=== PATIENT | male | born 1940 | race Caucasian/White ===

== ENCOUNTER → 2019-05-11 12:27 | Outpatient (CLI) | payer MEDICARE, OTHER, SELFPAY ==
--- NOTE | ~2019-05-11 | XR_ITS ---
EXAMINATION: XR chest 2V DATE: 05/11/2019 12:47 INDICATION: Cough. TECHNIQUE: Frontal and lateral views of the chest were obtained. COMPARISON: Chest 2 views 08/08/2017 FINDINGS: The chest demonstrates clear lungs without pneumonia, pleural effusion, or pneumothorax. Th e heart size is normal. There is a left chest wall pacer with leads in the right atrium and right misti tricle. IMPRESSION: 1. No acute cardiopulmonary disease. Reviewed, dictated and finalized at location A. D SALES SPECIALIST
== END ==
PROVIDERS: Visit Provider Nurse Practitioner
DX: R05 Cough (principal)
CPT/HCPCS: 71046

== ENCOUNTER 2021-03-02 13:03 | Outpatient (CLI) | payer MEDICARE, OTHER, SELFPAY ==
--- NOTE | ~2021-03-02 | XR_ITS ---
EXAMINATION: XR lumbar spine 2-3V DATE: 03/02/2021 13:22 INDICATION: Low back pain. TECHNIQUE: 3 views of lumbar spine were obtained. COMPARISON: CT abdomen and pelvis 05/19/15 FINDINGS: There is 6 mm levocurvature of lumbar spine. S1 is age is initial segment. There is 4 mm an terolisthesis of L5 on S1. There is a compression fracture of L1 with 1/5 loss of height. There is mi ldly decreased disc height at L4-L5 and severely decreased disc height at L5-S1. There is multilevel facet joint osteoarthritis, severe bilaterally at L5-S1. IMPRESSION: 1. L1 compression fracture, likely acute or subacute. 2. Severe lower lumbar spondylosis. Reviewed, dictated and finalized at location A. UNICATIONS OPERATOR
== END 2021-03-02 13:04 | disposition home or self-care (01) ==
LOC: ANHIMG 13:06
PROVIDERS: PCP Internal Medicine; Visit Provider Nurse Practitioner
DX: M54.50 Low back pain, unspecified (principal); M48.56XA Collapsed vertebra, not elsewhere classified, lumbar region, initial encounter for fracture; M47.816 Spondylosis without myelopathy or radiculopathy, lumbar region
CPT/HCPCS: 72100

== ENCOUNTER 2021-03-16 07:57 | Outpatient (CLI) | payer MEDICARE, OTHER, SELFPAY ==
--- NOTE | ~2021-03-16 | CT_ITS ---
EXAMINATION: CT lumbar spine wo [facility] EXAM DATE: 03/16/2021 08:22 INDICATION: Fall, low back pain, L1 compression fracture. TECHNIQUE: Spiral CT of the lumbar spine was performed without contrast. Axial, coronal and sagittal images lumbar spine were reviewed. The dose-length product (DLP) for this examination was 1115.06 m Gy-cm. The exposure was tailored according to patient size (auto mA exposure control), and iterativ e reconstruction (ASIR) was used as additional dose reduction technique. There is no prior study for comparison. FINDINGS: There is mild to moderate subacute L1 compression fracture, with sclerosis which is evidenc e of healing response. Otherwise lumbar vertebral body heights relatively well-maintained. There is 2 -3 mm anterolisthesis L5 on S1. The vertebral bodies are otherwise aligned. Moderate L5-S1 disc disea se, mild at the other lumbar levels. Sacrum appears intact. There is small sliding gastroesophageal h iatal hernia. Level by level evaluation: T12-L1: Disc does not extend beyond the endplate margin. Facet arthropathy: None. Neural foraminal stenosis: No stenosis. Central canal stenosis: No stenosis. L1-L2: Disc does not extend beyond the endplate margin. Facet arthropathy: None. Neural foraminal stenosis: No stenosis. Central canal stenosis: No stenosis. L2-L3: There is a mild diffuse disc bulge. Facet arthropathy: Mild. Neural foraminal stenosis: Mild right. Central canal stenosis: Mild. L3-L4: There is a moderate diffuse disc bulge. Facet arthropathy: Mild to moderate. Neural foraminal stenosis: Mild bilateral. Central canal stenosis: Mild to moderate. L4-L5: There is a moderate diffuse disc bulge. Facet arthropathy: Moderate. Neural foraminal stenosis: Mild to moderate bilateral, left greater than right. Central canal stenosis: Moderate. L5-S1: There is a moderate diffuse disc bulge. Facet arthropathy: Moderate. Neural foraminal stenosis: Moderate left, mild to moderate right. Central canal stenosis: Mild. IMPRESSION: 1. L1 subacute mild to moderate compression fracture. 2. Up to moderate lumbar spondylosis. Reviewed, dictated and finalized at location B. FINISHER
== END 2021-03-16 07:58 | disposition home or self-care (01) ==
LOC: ANHIMG 08:00
PROVIDERS: PCP Internal Medicine; Visit Provider Nurse Practitioner
DX: M47.896 Other spondylosis, lumbar region (principal); S32.010A Wedge compression fracture of first lumbar vertebra, initial encounter for closed fracture; X58.XXXA Exposure to other specified factors, initial encounter
CPT/HCPCS: 72131

== ENCOUNTER → 2021-05-07 09:52 | Outpatient (CLI) | payer MEDICARE, OTHER, SELFPAY ==
--- NOTE | ~2021-05-07 | XR_ITS ---
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 TECHNIQUE: 5 views of lumbar spine were obtained. COMPARISON: Lumbar spine radiographs 03/02/2021, CT lumbar spine 03/16/2021 FINDINGS: There is 3 degrees levocurvature of lower lumbar spine. S1 is a transitional segment. There is 3 mm anterolisthesis of L5 on S1. There is less than 1/5 chronic height loss of L5 vertebral body posteriorly. There is a burst fracture of L1 with 1/5 loss of height without retropulsion of bone. I s severely decreased disc height at L5-S1. There is multilevel facet joint osteoarthritis, severe sonia aterally at L2-L3 and L5-S1. IMPRESSION: 1. L1 burst fracture, stable from 03/16/2021. 2. Severe lower lumbar spondylosis. Reviewed, dictated and finalized at location E. GRINDER
== END ==
PROVIDERS: PCP Internal Medicine; Visit Provider Pain Medicine Pain Medicine
DX: M80.08XA Age-related osteoporosis with current pathological fracture, vertebra(e), initial encounter for fracture (principal); M47.896 Other spondylosis, lumbar region; S32.011A Stable burst fracture of first lumbar vertebra, initial encounter for closed fracture; X58.XXXA Exposure to other specified factors, initial encounter
CPT/HCPCS: 72110

== ENCOUNTER 2021-12-27 09:29 | Outpatient (CLI) | payer MEDICARE, OTHER, SELFPAY ==
[2021-12-27 19:51] LABS: Basophils Percent Auto 0.7 % (0.2-1.2); Eosinophils Absolute Auto 0.1 K/mm3 (0-0.3); Eosinophils Percent Auto 2.7 % (0-4.4); Hematocrit 45.3 % (42.0-52.0); Hemoglobin 14.9 g/dL (14.0-18.0); Immature Granulocyte Absolute 0.01 K/mm3 (0.00-0.031); Immature Granulocyte Percent A 0.2 % (0-0.5); Lymphocytes Absolute Auto 0.86 K/mm3 (0.9-3.2); Lymphocytes Percent Auto 19.5 % (18.3-44.2); Mean Corpuscular HGB Conc 32.9 g/dl (32-36); Mean Corpuscular Hemoglobin 30.7 pg (26-34); Mean Corpuscular Volume 93.2 fl (80-100); Mean Platelet Volume 10.8 fl (7.4-10.4); Monocytes Absolute Auto 0.4 K/mm3 (0.1-0.6); Neutrophils Absolute Auto 2.9 K/mm3 (1.3-6.7); Neutrophils Percent Auto 66.9 % (45.5-73.1); Platelet Count Result 197 k/mm3 (150-375); Red Blood Count 4.86 M/mm3 (4.6-6.20); Red Cell Distribution Width 13.3 % (11.5-14.5); White Blood Count 4.4 K/mm3 (4.5-10.0)
[2021-12-27 20:20] LABS: Alanine Aminotransferase 23 U/L (6-50); Albumin Level 4.1 g/dL (3.5-5.1); Alkaline Phosphatase 71 U/L (38-126); Anion Gap 12 mmol/L (8-16); Aspartate Amino Transferase 38 U/L (17-59); Bilirubin,Total 0.6 mg/dL (0.2-1.3); Blood Urea Nitrogen 16 mg/dL (9-20); Calcium 8.6 mg/dL (8.4-10.2); Carbon Dioxide 25 mmol/L (22-30); Chloride 103 mmol/L (98-107); Estimated Glomerular Filt Rate > 60; Glucose 113 mg/dL (65-110); Potassium 4.2 mmol/L (3.4-5.0); Sodium 140 mmol/L (137-145)
== END 2021-12-27 09:30 | disposition home or self-care (01) ==
PROVIDERS: PCP Internal Medicine; Visit Provider Nurse Practitioner
DX: R94.4 Abnormal results of kidney function studies (principal); I10 Essential (primary) hypertension
CPT/HCPCS: 36415; 80053; 85025

== ENCOUNTER 2022-03-15 16:12 | Emergency (ER) | payer MEDICARE, OTHER, SELFPAY ==
--- NOTE | ~2022-03-15 | CT_ITS ---
EXAMINATION: CT brain wo con DATE: 03/15/2022 22:58 INDICATION: 10 days of intermittent weakness and dizziness TECHNIQUE: Computed tomography (CT) of the head was performed without intravenous contrast. Sagittal and coronal reconstructions were performed. The mA was adjusted according to patient size. Iterative reconstruction technique was employed. The dose-length product was 605.33 mGy-cm. COMPARISON: None FINDINGS: Small old infarct in the right cerebellar hemisphere. Small old lacunar infarct in the left frontal l obe periventricular wright radiata. No acute intracranial hemorrhage, acute infarction or abnormal ex tra axial fluid collection. There is mild scattered white matter hypoattenuation consistent with floor scraper diana small vessel ischemic disease. Symmetric prominence of the sulci consistent with mild age-appropr iate diffuse cerebral volume loss. Ventricles are normal and symmetric. No mass/mass effect. Changes of right intraocular lens replacement. The orbits, paranasal sinuses and mastoid air cells are normal . IMPRESSION: 1. No acute intracranial process. 2. A couple small old infarcts in the right cerebellar hemisphere and left frontal lobe wright radiat a. 3. Mild age-related changes including mild diffuse volume loss and mild scattered white matter hypoat tenuation consistent with chronic small vessel ischemic disease. Reviewed, dictated and finalized at location A. EMIC AFFAIRS VICE PRESIDENT IMPRESSION: 1. No acute intracranial process. 2. A couple small old infarcts in the right cerebellar hemisphere and left fron kishore lobe wright radiata. 3. Mild age-related changes including mild diffuse volume loss and mild scatter ed white matter hypoattenuation consistent with chronic small vessel ischemic d isease.
--- NOTE | ~2022-03-15 | XR_ITS ---
EXAMINATION: XR chest 2V DATE: 03/15/2022 23:06 INDICATION: Weakness TECHNIQUE: PA and lateral views of the chest are obtained. COMPARISON: 05/11/2019 FINDINGS: There is mild atelectasis of the lung bases. No pleural effusion or pneumothorax. The cardi omediastinal silhouette is normal. There is mild thoracic spondylosis. A dual-lead cardiac pacemaker of the left chest wall ends with leads in expected locations. A chronic L1 burst fracture is noted. IMPRESSION: 1. No acute cardiopulmonary abnormality. Reviewed, dictated and finalized at location A. N INVESTIGATOR
--- NOTE | ~2022-03-15 | CT_ITS ---
EXAMINATION: CTA chest PE protocol DATE: 03/16/2022 02:35 INDICATION: Dizziness and weakness TECHNIQUE: Computed tomography angiography (CTA) of the chest was performed with 100 mL Omnipaque-350 intravenous contrast timed to evaluate the pulmonary arteries. Coronal maximum intensity projection 3D-reconstructions were created by the technologist. The dose-length product (DLP) was 501.17 mGy-cm. Automated exposure control and iterative reconstruction technique were employed. COMPARISON: 08/01/2017 FINDINGS: The pulmonary arteries are well-opacified. No pulmonary embolism is identified. There is mi ld dependent atelectasis. The lungs are free of focal airspace opacities. No pleural effusion or pneu mothorax. No pathologically enlarged thoracic lymph nodes are identified. The heart size is normal. T here is a small sliding hiatal hernia. There is moderate thoracic spondylosis. There is a chronic L1 burst fracture. There are multiple small cystic lesions of the pancreas which measure up to 10 mm. IMPRESSION: 1. No pulmonary embolism or acute cardiopulmonary abnormality. 2. Multiple small cystic lesions of the pancreas. The differential diagnosis includes pseudocyst, int raductal papillary mucinous neoplasm (IPMN), mucinous cystic neoplasm (MCN), and the less common sero us cystadenoma and neuroendocrine tumor. Correlate for history of pancreatitis. Follow-up with nonemergent pancreas protocol CT or MRI without and with contrast is recommended. Reviewed, dictated and finalized at location A. ERCIAL ASSISTANT IMPRESSION: 1. No pulmonary embolism or acute cardiopulmonary abnormality. 2. Multiple small cystic lesions of the pancreas. The differential diagnosis in cludes pseudocyst, intraductal papillary mucinous neoplasm (IPMN), mucinous cys tic neoplasm (MCN), and the less common serous cystadenoma and neuroendocrine t umor. Correlate for history of pancreatitis. Follow-up with nonemergent pancreas protocol CT or MRI without and with contras t is recommended.
[2022-03-15 16:17] VITALS: BP 142/72; PULSE 74; RESP 16; TEMP 36.8; O2SAT 98
--- NOTE | 2022-03-15 16:23 | ECG_ITS ---
Measurements Intervals [place] Rate: 75 P: 74 UT: 193 QRS: -87 QRSD: 166 T: 75 QT: 433 QTc: 486 Interpretive Statements ELECTRONIC VENTRICULAR PACEMAKER SINUS RHYTHM IS APPROPRIATELY SENSED ABNORMAL RHYTHM ECG NO PREVIOUS ECG AVAILABLE FOR COMPARISON Electronically Signed On 03-15-2022 16:50:30 SHOE STAINER by Win Anderson M.D.
[2022-03-15 16:38] LABS: Basophils Percent Auto 0.3 % (0.2-1.2); Eosinophils Percent Auto 0.1 % (0-4.4); Hematocrit 45.2 % (42.0-52.0); Hemoglobin 15.2 g/dL (14.0-18.0); Immature Granulocyte Absolute 0.02 K/mm3 (0.00-0.031); Immature Granulocyte Percent A 0.2 % (0-0.5); Lymphocytes Absolute Auto 0.95 K/mm3 (0.9-3.2); Lymphocytes Percent Auto 9.8 % (18.3-44.2); Mean Corpuscular HGB Conc 33.6 g/dl (32-36); Mean Corpuscular Hemoglobin 30.6 pg (26-34); Mean Corpuscular Volume 90.9 fl (80-100); Monocytes Absolute Auto 0.6 K/mm3 (0.1-0.6); Monocytes Percent Auto 5.8 % (2.6-8.5); Neutrophils Absolute Auto 8.1 K/mm3 (1.3-6.7); Neutrophils Percent Auto 83.8 % (45.5-73.1); Platelet Count Result 193 k/mm3 (150-375); Red Blood Count 4.97 M/mm3 (4.6-6.20); Red Cell Distribution Width 13.2 % (11.5-14.5); White Blood Count 9.7 K/mm3 (4.5-10.0)
[2022-03-15 16:48] LABS: Alanine Aminotransferase 23 U/L (6-50); Albumin Level 4.4 g/dL (3.5-5.1); Alkaline Phosphatase 74 U/L (38-126); Anion Gap 9 mmol/L (8-16); Aspartate Amino Transferase 24 U/L (17-59); Bilirubin,Total 0.4 mg/dL (0.2-1.3); Blood Urea Nitrogen 17 mg/dL (9-20); Calcium 8.6 mg/dL (8.4-10.2); Carbon Dioxide 25 mmol/L (22-30); Chloride 101 mmol/L (98-107); Estimated CRCL calculation 54 ml/min; Estimated Glomerular Filt Rate > 60; Glucose 151 mg/dL (65-110); Potassium 4.1 mmol/L (3.4-5.0); Sodium 135 mmol/L (137-145)
[2022-03-15 17:04] LABS: INR 1.1; Prothrombin Time 13.8 Seconds (11.1-14.7)
[2022-03-15 20:12] LABS: Troponin I < 0.012 ng/mL (0.000-0.034)
[2022-03-15 23:16] LABS: Hemoglobin A1C 6.4 % (<5.7)
--- NOTE | 2022-03-15 23:26 | ED.WEAKNESS ---
HPI - Weakness General Chief complaint: Weakness <Veronica Bhakta PA-C - Last Filed: 03/16/22 04:18> Stated complaint: Weakness, dizziness <TORRES Dejesus Last Filed: 03/16/22 04:18> Time Seen by Provider: 03/15/22 22:47 <TORRES Dejesus Last Filed: 03/16/22 04:18> Source: patient <TORRES Dejesus Last Filed: 03/16/22 04:18> Mode of arrival: ambulatory <TORRES Dejesus Last Filed: 03/16/22 04:18> Limitations: no limitations <TORRES Dejesus Last Filed: 03/16/22 04:18> History of Present Illness HPI Narrative: This is a 81 year old male that presents to the ER for lightheadedness that started this afternoon. Reports he was feeling lightheaded and off balance. This lasted for a couple of hours. Was relieved without any intervention. Reports no symptoms currently. Denies fever, cough, congestion, chest pain, shortness of breath, abdominal pain, vomiting, or dysuria. <TORRES Dejesus Last Filed: 03/16/22 04:18> Related Data Allergies/Adverse reactions: Allergies Allergy/AdvReac Type Severity Reaction Status Date / Time No Known Allergies Allergy Mild Verified 12/27/21 09:02 <TORRES Dejesus Last Filed: 03/16/22 04:18> [facility] Past Medical History Medical History: Medical History (Updated 03/17/22 @ 00:00 by Background Daalayna) Anxiety Cardiac pacemaker Compression fracture of L1 lumbar vertebra Fibula fracture Herniated disc HLD (hyperlipidemia) HTN (hypertension) Hx of stroke without residual deficits 2014 Leg fracture Lower extremity surgery planned Mobitz type 2 second degree atrioventricular block Overweight (BMI 25.0-29.9) Pulmonary embolism without acute cor pulmonale Tibia fracture <TORRES Dejesus Last Filed: 03/16/22 04:18> Surgical History Surgical History: Surgical History History of appendectomy Status post placement of cardiac pacemaker <Veronica Bhakta PA-C - Last Filed: 03/16/22 04:18> Family History Family History: Family History Mother Family history of transient ischemic attacks Father Patient's father is in good health Sibling Patient's sister is in good health Patient's brother is in good health Patient's brother is <Veronica Bhakta PA-C - Last Filed: 03/16/22 04:18> Social History Social History: Social History Smoking status: Never smoker Alcohol intake: current Alcohol use details: rarely <Veronica Bhakta PA-C - Last Filed: 03/16/22 04:18> Exam Narrative: GENERAL: Well-appearing, well-nourished, and in no acute distress. HEAD: Normocephalic, atraumatic. EYES: PERRLA and EOMI. ENT: Nares clear, no rhinorrhea or epistaxis. Mucous membranes moist. Oropharynx without tonsillar hypertrophy exudate or other lesions. Bilateral TMs pearly ortiz non-bulging NECK: Supple. No adenopathy or masses. CHEST: Clear to auscultation. No respiratory distress. No wheezes rales or rhonchi HEART: Regular rate and rhythm. No murmur heard. Normal peripheral pulses. EXTREMITIES: Normal range of motion. No edema. SKIN: Warm, dry, no rash. NEURO: No focal deficits. Alert and oriented x3. Cranial nerves II through XII grossly PSYCH: Normal mood and affect <Veronica Bhakta PA-C - Last Filed: 03/16/22 04:18> Course PAINT BRUSH MAKER/PA Physician Supervision For this encounter, I have reviewed the mid-level provider documentation, treatment plan and medical decision making. I have had [id number] time with the patient. This is a very pleasant and active 81-year-old male presenting ED with intermittent episodes of dizziness. On history the episodes are intermittent without associated neurologic deficits or double vision dysphagia or dysarthria or dystaxia. neurologic exam is normal in ED.
[2022-03-15 23:31] VITALS: BP 144/77; PULSE 71
[2022-03-15 23:32] VITALS: BP 137/85; PULSE 78
[2022-03-15 23:33] VITALS: BP 152/78; PULSE 76
--- NOTE | 2022-03-16 00:37 | PC.NURSE ---
[facility] [place] pacemaker interpreted awaiting fax.
[2022-03-16 00:39] LABS: Add Urine Microscopic? NO; Appearance Urine Clear (Clear); Bilirubin Urine Negative (Negative); Blood Urine Negative (Negative); Color Urine Light Yellow (Yellow); Glucose Urine UA Negative (Negative); Ketones Urine Negative (Negative); Leukocyte Esterase Ur Negative LEU/UL (Negative); Nitrate Urine Negative (Negative); Protein Urine Negative (Negative); Specific Grav Ur <= 1.005 (1.001-1.035); Urobilinogen Urine 0.2 mg/dL (<2.0)
[2022-03-16 00:48] LABS: D Dimer 1.01 ug/mL (<0.48)
[2022-03-16 01:15] VITALS: BP 118/76; PULSE 89; RESP 18; TEMP 36.8; O2SAT 98
[2022-03-16 02:29] VITALS: BP 118/79; PULSE 79; RESP 18; TEMP 36.8; O2SAT 99
[2022-03-16 03:00] VITALS: BP 136/79; PULSE 75; RESP 18; TEMP 36.8; O2SAT 99
[2022-03-16 03:52] VITALS: BP 129/76; PULSE 72; RESP 18; TEMP 36.8; O2SAT 99
== END 2022-03-16 03:54 | disposition home or self-care (01) ==
PROVIDERS: Emergency Medicine; Physician Assistant; Emergency Provider Emergency Medicine; PCP Internal Medicine
DX: R42 Dizziness and giddiness (principal); E78.5 Hyperlipidemia, unspecified; I10 Essential (primary) hypertension; E66.3 Overweight; Z68.28 Body mass index [BMI] 28.0-28.9, adult; Z95.0 Presence of cardiac pacemaker; Z86.73 Personal history of transient ischemic attack (TIA), and cerebral infarction without residual deficits; Z86.711 Personal history of pulmonary embolism; Z79.899 Other long term (current) drug therapy
CPT/HCPCS: 36415; 70450; 71046; 71275; 80053; 81003; 83036; 84484; 85025; 85380; 85610; 85730; 93005; 99284; Q9967

== ENCOUNTER → 2022-03-28 10:29 | Outpatient (CLI) | payer MEDICARE, OTHER, SELFPAY ==
--- NOTE | ~2022-03-28 | CT_ITS ---
CT Abdomen and Pelvis with contrast. History: Pancreatic mass. Spiral CT of the abdomen and pelvis was performed prior to and following administration of intravenou s contrast. 100 cc of Omnipaque 350 was administered intravenously without complication. Dose reducti on technique was used on this scan by utilizing automated exposure control and iterative reconstructi on technique. The dose-length product (DLP) was 1816.24 mGy-cm. COMPARISON: 05/09/2015, 03/16/2022 Findings: Scans through the lung bases demonstrate mild atelectatic change. The liver, spleen, gallbladder, adrenals and kidneys are within normal limits. There are at least 3 s mall, cystic, nonenhancing lesions of the pancreas, measuring up to approximately 1 cm in maximum yesi meter, as seen on recent chest CT. It or not clearly present on prior abdominal pelvic CT dated 016. No dilatation of the main pancreatic duct. No evidence of aortic aneurysm. No lymphadenopathy i s seen. Visualized bowel loops are unremarkable. No ascites identified. Compression deformity of L1 is stable since 03/16/2022. Impression: At least 3 small cystic nonenhancing lesions of the pancreas, as detailed above. Findings could refle ct small side branch IPMNs, versus pseudocysts or other small cystic neoplasms. In any event, these a re of low malignant potential. 1 year follow-up exam advised. L1 compression fracture. Reviewed, dictated and finalized at location . ING SUPERVISOR Impression: At least 3 small cystic nonenhancing lesions of the pancreas, as detailed above . Findings could reflect small side branch IPMNs, versus pseudocysts or other s mall cystic neoplasms. In any event, these are of low malignant potential. 1 ye ar follow-up exam advised. L1 compression fracture.
== END ==
PROVIDERS: PCP Nurse Practitioner; Visit Provider Nurse Practitioner
DX: K86.89 Other specified diseases of pancreas (principal)
CPT/HCPCS: 74170; Q9967

== ENCOUNTER 2022-08-21 08:57 | Outpatient (CLI) | payer MEDICARE, OTHER, SELFPAY ==
[2022-08-21 13:37] LABS: Hemoglobin A1C 5.9 % (<5.7)
== END 2022-08-21 08:58 | disposition home or self-care (01) ==
LOC: ANHGOSHLAB 08:58
PROVIDERS: PCP Internal Medicine; Visit Provider Nurse Practitioner
DX: R73.03 Prediabetes (principal)
CPT/HCPCS: 36415; 83036

== ENCOUNTER 2022-11-05 14:15 | Outpatient (RCR) | payer MEDICARE, OTHER, SELFPAY ==
--- NOTE | 2022-10-08 15:36 | OPREHPOC ---
Outpatient Therapy Plan of Care This is a Multidisciplinary Plan of Care that may contain components documented by all disciplines (PT, OT, and ST.) PT Problem 1 PT Problem #1 Knowledge Deficit PT Goal 1 Goal Pt to be IND with issued HEP Target Visit 4 PT Problem 2 PT Problem #2 Pain PT Goal 1 Goal Pt to continue to report no pain at rest Target Visit 4 PT Problem 3 PT Problem #3 Impaired Strength PT Goal 1 Goal Pt to increase L ankle dorsiflexion strength equal to the L ankle Target Visit 4 PT Goal 2 Goal Pt to demonstrate 5xSTS in less than 15s Target Visit 4 PT Problem 4 PT Problem #4 Impaired Gait PT Goal 1 Goal Pt to ambulate without gait deviations Target Visit 4 PT Goal 2 Goal Pt to demonstrate neutral ankle alignment during ambulation. Target Visit 4
--- NOTE | 2022-10-08 15:36 | PTOPEVAL1 ---
Assessment and note entered by Kane Serrano, PT, DPT Evaluation Information Assessment Status Evaluation Diagnosis low back pain Onset 2 weeks Subjective Information Imaging shows severe lumbar stenosis with a disc extrusion at L3-L4. Pt states his back had a flair up in the beginning of August, he states he is doing good now. He states he had a pinched nerve that caused his foot to be weak and numb. He states he treated his back himself. He states his pain is completely gone now he just has a little bit of numbness. He states he walks with a limp and would like to get rid of that. Reported Pain Level Pain Score 0: Self Report Additional Pain Score Comments Pt reports his numbness at an intensity of 2/10 at the worst. Assessment PT Clinical Summary Chiki presents to therapy today with a diagnosis of lumbar radiculopathy with stenosis. Today he declines any pain or radiating pain in the last week. He reports intermittent numbness of his R foot and demonstrates decreased ankle strength. He ambulates with a R sided antalgic pattern increasing the heel strike on his L. He has decreased hip and ankle strength on the R when compared to the L. Skilled therapy services are indicated to educate on body mechanics, to improve ankle and core strength, to normalize movement patterns, and to return to PLOF. Plan of Care Interventions Electrical Stimulation,Gait Training,Hot Pack/Cold Pack,Manual Therapy,Neuro Re-education,Patient/ Caregiver Educati,Therapeutic Activities, Therapeutic Exercise PT Services Indicated Yes Treatment Frequency and 1x/wk for 4 wks Duration These treatments will address the objective and functional deficits as defined above. The patient will be advanced safely and appropriately in order for the patient to progress towards his/her prior level of function. Additional exercises will be introduced and as well as a comprehensive home exercise program upon discharge, if needed, ?to ensure carryover of functional gains achieved in the clinic. This treatment plan has been reviewed and agreement upon by the patient.
--- NOTE | 2022-11-05 14:46 | PTOPDC ---
Assessment and note entered by Kane Serrano, PT, DPT Evaluation Information Assessment Status Discharge Diagnosis low back pain Onset 2 weeks Subjective Information Pt states he is just going to have to live with his R leg being weaker than the L. He states the back pain is going well and the pinched nerve pain he had has seemed to go away. He states his back get fatigued when he is working in the yard for long periods of time. Pt reports poor compliance with his HEP, he states [place]. Reported Pain Level Pain Score 0: Self Report Assessment PT Clinical Summary Chiki presents to therapy today for his progress report following 4 visits of skilled therapy to treat his diagnosis of lumbar radiculopathy with stenosis. Today he continues declines any pain or radiating pain in the last week. He reports intermittent numbness of his R foot and demonstrates decreased ankle strength that is chronic. He reports minimal improvement with skilled therapy services and would like to be discharged at this time. Plan of Care PT Services Indicated No
== END 2022-11-21 10:57 | disposition home or self-care (01) ==
LOC: ANHGOSHPT 14:15
PROVIDERS: PCP Internal Medicine; Visit Provider Anesthesiology Pain Medicine
DX: M54.16 Radiculopathy, lumbar region (principal); M54.9 Dorsalgia, unspecified; M21.371 Foot drop, right foot
CPT/HCPCS: 97110; 97112; 97161; 97530

== ENCOUNTER 2023-04-07 14:40 | Outpatient (CLI) | payer MEDICARE, OTHER, SELFPAY ==
--- NOTE | ~2023-04-07 | CT_ITS ---
CT of the Abdomen: Indication: Pancreatic mass Technique: 2.5 mm axial scans were obtained through the abdomen following intravenous administration of 1 cc of Omnipaque 350. Dose reduction technique was used on this scan by utilizing automated expo sure control and iterative reconstruction technique. The dose-length product (DLP) was 593.30 mGy-cm. COMPARISON: 03/28/2022 Findings: Scans through the lung bases are unremarkable. The liver, spleen, gallbladder, adrenals and kidneys are within normal limits. Pancreas is overall at rophic, with multiple small cystic masses throughout, similar in appearance to prior exam. There are atherosclerotic calcifications of the aorta. No lymphadenopathy. Visualized bowel loops are unremarkable. No ascites. Stable L1 compression fracture. Impression: Multiple small cystic masses in the pancreas, with underlying pancreatic atrophic changes, stable fro m prior exam. Reviewed, dictated and finalized at location M. NSIC MATERIALS ENGINEER Impression: Multiple small cystic masses in the pancreas, with underlying pancreatic atroph ic changes, stable from prior exam.
[2023-04-07 15:10] LABS: Estimated Glomerular Filt Rate > 60
== END 2023-04-07 14:41 | disposition home or self-care (01) ==
PROVIDERS: PCP Internal Medicine; Visit Provider Nurse Practitioner
DX: K86.89 Other specified diseases of pancreas (principal)
CPT/HCPCS: 74160; Q9967

== ENCOUNTER 2023-06-05 15:13 | Outpatient (CLI) | payer MEDICARE, OTHER, SELFPAY ==
--- NOTE | ~2023-06-05 | XR_ITS ---
EXAMINATION: XR wrist RT 2V, XR hand RT 2V DATE: 06/05/2023 15:25 INDICATION: Right hand and wrist injury TECHNIQUE: 1. Posteroanterior and lateral views of the right wrist were obtained. 2. Dorsal palmar and lateral views of the right hand were obtained. COMPARISON: None. FINDINGS: Alignment of the right hand and wrist is normal. No fracture identified. Mild osteoarthritis at the first carpometacarpal and at the interphalangeal joints with distal predominance. No erosions to sugg est inflammatory arthritis. Soft tissues are unremarkable. IMPRESSION: 1. 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 Reviewed, dictated and finalized at location A. NER INDUSTRIAL IMPRESSION: 1. Typical distribution of mild polyarticular osteoarthritis at the radial aspe ct of the carpus and at the interphalangeal joints.
== END 2023-06-05 15:14 ==
LOC: MICIMG 15:16
PROVIDERS: PCP Nurse Practitioner; Visit Provider Nurse Practitioner
DX: M19.041 Primary osteoarthritis, right hand (principal); M19.031 Primary osteoarthritis, right wrist
CPT/HCPCS: 73100; 73120

== ENCOUNTER 2023-07-28 09:02 | Emergency (ER) | payer MEDICARE, OTHER, SELFPAY ==
[2023-07-28 09:20] VITALS: BP 131/74; PULSE 67; RESP 15; TEMP 36.6; O2SAT 97
--- NOTE | 2023-07-28 10:42 | ED.SKABFB ---
HPI - Skin/Abscess/Foreign Bdy General Chief complaint: Skin/Abscess/Foreign Body Stated complaint: boil on back Time Seen by Provider: 07/28/23 09:08 Source: patient Mode of arrival: ambulatory Limitations: no limitations History of Present Illness HPI narrative: Patient is an 83-year-old male who presents to the ED with report of an abscess to his mid back. Patient reports he frequently uses a massage chair and noticed an area of discomfort in his mid back 2 weeks ago. He was seen by his primary care doctor on Friday and diagnosed with an abscess of his mid back. Started on Bactrim. Has been taking this as prescribed. States pain has continued to worsen. The abscess began draining spontaneously a couple of days ago, but he still feels increased pressure. Denies fevers, nausea, vomiting. Denies history of similar abscesses. Patient is on any blood thinners. Related Data Home Medications Medication Instructions Recorded Confirmed tamsulosin 0.4 mg capsule 0.4 mg PO QHS PRN 02/14/23 07/25/23 Allergies Allergy/AdvReac Type Severity Reaction Status Date / Time No Known Allergies Allergy Mild Verified 07/28/23 09:27 Review of Systems Review of Systems: CONSTITUTIONAL: Denies fever, chills, or sweats. SKIN: See HPI MUSCULOSKELETAL: See HPI All systems reviewed & are unremarkable except as noted in HPI and below PMFSH Past Medical History Medical History Anxiety Cardiac pacemaker Compression fracture of L1 lumbar vertebra Fibula fracture Herniated disc HLD (hyperlipidemia) HTN (hypertension) Hx of stroke without residual deficits 2013 Leg fracture Lower extremity surgery planned Mobitz type 2 second degree atrioventricular block Overweight (BMI 25.0-29.9) Pulmonary embolism without acute cor pulmonale Tibia fracture Surgical History Surgical History History of appendectomy Status post placement of cardiac pacemaker Family History Family History Mother Family history of transient ischemic attacks Father Patient's father is in good health Sibling Patient's sister is in good health Patient's brother is in good health Patient's brother is Social History Social History Smoking status: Never smoker Alcohol intake: current Alcohol use details: rarely Do You Feel Safe in your Home?: Yes Lack of Transportation: No Lack of Food: Never True Current Housing: I Have Housing Concerned About Future Housing: No Difficulty Paying Gas/Electric Bills: No Difficulty Paying for Meds: No Currently Unemployed: No Education: Master's Degree or Higher Difficulty w/ Childcare or Family Care: No Exam Narrative: GENERAL: Elderly but well appearing, well-nourished, non-toxic, in no acute distress. HEAD: Normocephalic, atraumatic. RESPIRATORY: Airway patent, respirations nonlabored. CARDIOVASCULAR: Regular rate and rhythm without murmurs, rubs, or gallops. MUSCULOSKELETAL: Moves all extremities. No gross deformities. No spinal tenderness or palpable bony deformities. SKIN: Warm, dry, normal color. Approx 6x7cm superficial skin abscess to mid back with surrounding erythema, induration, a few scattered areas of pinpoint purulent drainage. Focal TTP. NEURO: A&O X3. Speech clear. PSYCHIATRIC: Appropriate mood and affect. Normal interaction. Skin: Full body images: 1. abscess Course Vital Signs Vital signs: Vital Signs Temperature 97.9 F 07/28/23 09:20 Pulse Rate 67 07/28/23 09:20 Respiratory Rate 15 07/28/23 09:20 Blood Pressure 131/74 07/28/23 09:20 Pulse Oximetry 97 07/28/23 09:20 Oxygen Delivery Room Air 07/28/23 09:20 Temperature 97.9 F 07/28/23 09:20 Pulse Rate 67 07/28/23
[2023-07-28 10:55] VITALS: BP 123/72; PULSE 62; RESP 15; TEMP 37; O2SAT 97
== END 2023-07-28 10:57 | disposition home or self-care (01) ==
PROVIDERS: Emergency Provider Physician Assistant; PCP Internal Medicine
DX: L02.212 Cutaneous abscess of back [any part, except buttock and flank] (principal); I10 Essential (primary) hypertension; E78.5 Hyperlipidemia, unspecified; E66.3 Overweight; Z68.27 Body mass index [BMI] 27.0-27.9, adult; Z95.0 Presence of cardiac pacemaker; Z86.73 Personal history of transient ischemic attack (TIA), and cerebral infarction without residual deficits; Z86.711 Personal history of pulmonary embolism
CPT/HCPCS: 10061; 87070; 87205; 99283